=== PATIENT | female | born 1950 | race Caucasian/White ===

== ENCOUNTER 2018-05-07 08:14 | Day surgery (SDC) | payer OTHER ==
[2018-05-07] MEDS: TETRACAINE 0.5% UNIT-DOSE OP PRN ×2 (09:20→10:32)
[2018-05-07] MEDS: BETADINE OPTH PREP OP PRN ×2 (09:20→10:32)
[2018-05-07] MEDS: CYCLOGYL 2% OPTH OP PRN ×3 (09:20→09:30)
[2018-05-07] MEDS ORDERED: ZOFRAN 4 MG/2 ML IVP ONE (09:38)
[2018-05-07] MEDS ORDERED: BSS WITH EPINEPHRINE OP ONE (09:38)
[2018-05-07] MEDS ORDERED: BRIMONIDINE TARTRATE 0.2% OPTH SOL OP PRN (09:38)
[2018-05-07] MEDS ORDERED: LIDOCAINE 1%/PHENYLEPHRINE 1.5% BSS (SURGERY) INTRAOCULA ONE (09:38)
[2018-05-07] MEDS ORDERED: LIDOCAINE 1% 20 ML MDV ID STA (09:38)
[2018-05-07] MEDS ORDERED: DEX-MOXI-KETOR OPTH INJ 1/0.5/0.4 MG/ML IO ONE (09:38)
[2018-05-07] MEDS ORDERED: DIPRIVAN 20 ML VIAL IVP ONE (10:15)
[2018-05-07] MEDS ORDERED: VERSED ONE (10:15)
[2018-05-07] MEDS ORDERED: SUBLIMAZE ONE (10:15)
[2018-05-07 11:27] VITALS: BP 110/61
[2018-05-07 12:18] VITALS: TEMP 97.9
== END 2018-05-07 11:45 | disposition home or self-care (01) ==
LOC: SURG 08:14
PROVIDERS: ATTEND Ophthalmology
DX: H25.12 Age-related nuclear cataract, left eye (principal)

== ENCOUNTER 2018-05-21 08:33 | Day surgery (SDC) | payer OTHER ==
[2018-05-21] MEDS: BETADINE OPTH PREP OP PRN ×2 (09:25→09:55)
[2018-05-21] MEDS: CYCLOGYL 2% OPTH OP PRN ×3 (09:26→09:36)
[2018-05-21] MEDS ORDERED: TETRACAINE 0.5% UNIT-DOSE OP PRN (09:30)
[2018-05-21] MEDS ORDERED: DEX-MOXI-KETOR OPTH INJ 1/0.5/0.4 MG/ML IO ONE (09:30)
[2018-05-21] MEDS ORDERED: BRIMONIDINE TARTRATE 0.2% OPTH SOL OP PRN (09:30)
[2018-05-21] MEDS ORDERED: LIDOCAINE 1%/PHENYLEPHRINE 1.5% BSS (SURGERY) INTRAOCULA ONE (09:30)
[2018-05-21] MEDS ORDERED: BSS WITH EPINEPHRINE OP ONE (09:30)
[2018-05-21] MEDS ORDERED: ZOFRAN 4 MG/2 ML IVP ONE (09:30)
[2018-05-21] MEDS ORDERED: LIDOCAINE 1% 20 ML MDV ID STA (09:30)
[2018-05-21] MEDS ORDERED: VERSED ONE (09:55)
[2018-05-21] MEDS ORDERED: SUBLIMAZE ONE (09:55)
[2018-05-21 12:47] VITALS: TEMP 98.2
[2018-05-26 09:00] VITALS: BP 112/56
== END 2018-05-21 10:30 | disposition home or self-care (01) ==
LOC: SURG 08:33
PROVIDERS: ATTEND Ophthalmology
DX: H25.811 Combined forms of age-related cataract, right eye (principal)